=== PATIENT | female | born 1990 | race Caucasian/White ===

== ENCOUNTER 2020-06-04 20:38 | Emergency (ER) | payer SELFPAY ==
[~2020-06-04] VITALS: Ht 157.5 cm; Wt 72.6 kg
[2020-06-04 20:46] VITALS: BP 146/82
--- NOTE | 2020-06-04 21:30 | NUR ---
PT AMBULATED TO BED 11.
[2020-06-04] MEDS ORDERED: LIDOCAINE 2% 1000 MG/50 ML VIAL INJ ONE (21:35)
--- NOTE | 2020-06-04 21:45 | NUR ---
30 YO F BIB SELF FOR C/C OF 9/10 RIGHT CALF PAIN POST LACERATION. PT WAS CARRYING A BAG OF TRASH WITH GLASS IN IT WHEN THE GLASS FELL OUT OF THE BAG AND CUT HER RIGHT CALF 45 MIN AGO. LAC IS ABOUT 3 INCHES LONG. PTS PEDAL PULSES ARE EQUAL AND REG. PT HAS FULL ROM IN R LEG. DENIES TAKING ANY OTC MEDS FOR PAIN. NKA NO MED HX NO RX
--- NOTE | 2020-06-04 21:50 | NUR ---
FRANCISCOD PERFORMING LAC REPAIR.
--- NOTE | 2020-06-04 22:00 | NUR ---
TDAP CONSENT OBTAINED. TDAP ADMINSITERED IN L DELTOID. PT TOLERATED WELL.
[2020-06-04] MEDS ORDERED: BACITRACIN OINT 500 UNITS/GM PKT TP ONE (22:01)
[2020-06-04 22:15] VITALS: BP 146/82
--- NOTE | 2020-06-04 22:15 | NUR ---
Patient discharged with v/s stable. Written and verbal after care instructions given and explained. Patient alert, oriented and verbalized understanding of instructions. Ambulatory with steady gait. All questions addressed prior to discharge. ID band removed. Patient advised to follow up with PMD. Rx of NEOSPORIN, MOTRIN given. Patient educated on indication of medication including possible reaction and side effects. Opportunity to ask questions provided and answered.
== END 2020-06-04 22:15 | disposition home or self-care (01) ==
LOC: MED 20:38
DX: S71.111A Laceration without foreign body, right thigh, initial encounter (principal); W25.XXXA Contact with sharp glass, initial encounter; Y93.89 Activity, other specified; Y92.89 Other specified places as the place of occurrence of the external cause; Y99.8 Other external cause status
CPT/HCPCS: 12002; 90471; 90715; 99284; J2001